=== PATIENT | male | born 1975 | race Caucasian/White ===

== ENCOUNTER 2019-03-01 19:58 | Emergency (ER) | payer MEDICAID, OTHER ==
[~2019-03-01] VITALS: Ht 182.9 cm; Wt 108.0 kg
[2019-03-01 20:16] VITALS: BP_SYST 156
--- NOTE | 2019-03-01 20:30 | NUR ---
Patient to ER bed 02 to gown for evaluation. Side rails up. Report given to Brad VERA.
--- NOTE | 2019-03-01 20:43 | NUR ---
AWAKE, ALERT. PT STATES THAT HE HAS CONSTIPATION FOR THE LAST 3 DAYS. HE ALSO HAS BODY ACHES, CHILLS, AND LOW BACK PAIN.
--- NOTE | 2019-03-01 20:45 | NUR ---
ER at bedside examining patient.
[2019-03-01 21:09] LABS: BASOPHILS % (AUTO) 0.4 % (0.0-2.0); EOSINOPHILS % (AUTO) 0.7 % (0.0-4.0); HEMATOCRIT 40.8 % (36-54); HEMOGLOBIN 13.9 g/dL (14.0-18.0); LYMPHOCYTES % (AUTO) 21.4 % (20.5-51.5); MEAN CORPUSCULAR HEMOGLOBIN 28 pg (27-31); MEAN CORPUSCULAR HGB CONC 34 % (32-36); MEAN CORPUSCULAR VOLUME 82 fL (79.0-98.0); MONOCYTES # (AUTO) 0.5 K/uL (0.0-1.0); MONOCYTES % (AUTO) 10.1 % (1.7-9.3); NEUTROPHILS % (AUTO) 67.4 % (40.0-70.0); PLATELET COUNT (AUTO) 176 K/uL (130-430); RED BLOOD CELL COUNT(AUTO) 4.96 MIL/uL (4.2-6.2); RED CELL DISTRIBUTION WIDTH 14.5 % (9.0-15.0); WHITE BLOOD COUNT (AUTO) 4.5 K/uL (4.8-10.8)
[2019-03-01] MEDS: ONDANSETRON HCL 4 MG/2 ML VIAL IVP ONE (21:11)
[2019-03-01] MEDS: MORPHINE 4 MG/ML INJ. SYRINGE IVP ONE (21:12)
[2019-03-01] MEDS: NACL 0.9% 1,000 ML IV ONE (21:13)
[2019-03-01] MEDS ORDERED: MORPHINE 4 MG/ML INJ. SYRINGE ONE (21:20)
[2019-03-01 21:26] LABS: CALCIUM 8.4 mg/dL (8.4-11.0); CREATININE 1.01 mg/dL (0.55-1.30); POTASSIUM 3.8 mmol/L (3.5-5.1)
[2019-03-01 21:31] LABS: ALBUMIN 3.3 g/dL (3.4-4.8); TOTAL BILIRUBIN 0.2 mg/dL (0.0-1.0)
--- NOTE | 2019-03-01 21:50 | NUR ---
TO CT ABDOMEN AND PELVIS.
[2019-03-01 23:35] VITALS: BP_SYST 156
--- NOTE | 2019-03-01 23:35 | NUR ---
Patient given written and verbal discharge instructions and verbalizes understanding. ER DR ROSENDO ALMAGUER discussed with patient the results and treatment provided. Patient in stable condition. ID arm band removed. IV catheter removed intact and dressing applied, no active bleeding. Rx of BENTYL given. Patient educated on pain management and to follow up with PMD. Pain Scale . Opportunity for questions provided and answered. Medication side effect fact sheet provided.
== END 2019-03-01 23:35 | disposition home or self-care (01) ==
LOC: SED 19:58
DX: E27.8 Other specified disorders of adrenal gland (principal); R03.0 Elevated blood-pressure reading, without diagnosis of hypertension
CPT/HCPCS: 36415; 74176; 80053; 83690; 85025; 96374; 96375; 99284; J2270; J2405; J7030

== ENCOUNTER 2019-03-03 17:53 | Emergency (ER) | payer MEDICAID ==
[~2019-03-03] VITALS: Ht 182.9 cm; Wt 106.6 kg
[2019-03-03 17:53] VITALS: BP_SYST 155
--- NOTE | 2019-03-03 17:55 | NUR ---
BROUGHT BACK TO BED #3 AND TRIAGED. REPORT GIVEN TO PORFIRIO
--- NOTE | 2019-03-03 18:05 | NUR ---
43 year old male patient brought to the er by his mother. pt a/ox4 , ambulatory. pt states abd pain and rectum pain 5/10 at rest, 9/10 with flatus. pt states that abd pain began 03/01 and has increased in severity. pt states he has not filled bentyl prescription from er visit on 03/01. pt denies cp, dizziness, headache, shortness of breath. will continue to monitor.
--- NOTE | 2019-03-03 18:54 | NUR ---
ER at bedside examining patient.
--- NOTE | 2019-03-03 19:00 | NUR ---
Pt endorsed to Ye Mccallum RN
--- NOTE | 2019-03-03 19:02 | NUR ---
Pt states that he came in 2 days ago r/t constipation and now is passing black tarry stools. Pt states it feels like razor blades when he "farts" and resting pain is 5/10. VSS, no nees verbalized at this time. Family member at bedside.
--- NOTE | 2019-03-03 19:05 | NUR ---
X-ray at bedside.
--- NOTE | 2019-03-03 19:30 | NUR ---
Dr. Squires at bedside to assess pt and perform rectal exam. Specimen collected for hemoccult and sent to lab.
[2019-03-03] MEDS: MORPHINE 4 MG/ML INJ. SYRINGE IM ONE (20:20)
[2019-03-03 20:44] VITALS: BP_SYST 142
--- NOTE | 2019-03-03 20:44 | NUR ---
Patient given written and verbal discharge instructions and verbalizes understanding. ER MD discussed with patient the results and treatment provided. Patient in stable condition. ID arm band removed. No Rx given. Patient educated on pain management and to follow up with PMD. Pain Scale 2/10. Opportunity for questions provided and answered. Medication side effect fact sheet provided.
== END 2019-03-03 20:44 | disposition home or self-care (01) ==
LOC: SED 17:53
DX: K64.9 Unspecified hemorrhoids (principal); K62.89 Other specified diseases of anus and rectum; R03.0 Elevated blood-pressure reading, without diagnosis of hypertension; Z90.89 Acquired absence of other organs
CPT/HCPCS: 74021; 82272; 96372; 99284; J2270

== ENCOUNTER 2019-06-07 22:39 | Emergency (ER) | payer MEDICAID ==
[~2019-06-07] VITALS: Ht 182.9 cm; Wt 106.6 kg
[2019-06-07 22:56] VITALS: BP_SYST 159
--- NOTE | 2019-06-07 23:01 | NUR ---
Patient triaged and placed in waiting room. VSS and patient appears in no acute distress at this time. Accompanied by self, awaiting available bed, and MD notified of need for MSE.
--- NOTE | 2019-06-07 23:15 | NUR ---
Pt C/O pain and swelling to the RT leg x 1 month. States symptoms have worsened today, reports minimal relief with Motrin. Pt is ambulatory without assistance but states pain is a 9/10. Pt denies CP, SOB, N/V, or any other symptoms at this time. Will continue to monitor.
--- NOTE | 2019-06-08 01:35 | NUR ---
Pt ambulatory to bed 3 for evaluation
--- NOTE | 2019-06-08 01:43 | NUR ---
ER Dr. Can at bedside examining patient.
--- NOTE | 2019-06-08 02:30 | NUR ---
Pt is resting in bed, no acute distress noted at this time. Will continue to monitor.
[2019-06-08 03:19] LABS: BASOPHILS % (AUTO) 0.7 % (0.0-2.0); EOSINOPHILS # (AUTO) 0.1 K/uL (0.0-0.4); EOSINOPHILS % (AUTO) 2.5 % (0.0-4.0); HEMATOCRIT 39.6 % (36-54); HEMOGLOBIN 13.4 g/dL (14.0-18.0); LYMPHOCYTES % (AUTO) 33.8 % (20.5-51.5); MEAN CORPUSCULAR HEMOGLOBIN 26 pg (27-31); MEAN CORPUSCULAR HGB CONC 34 % (32-36); MEAN CORPUSCULAR VOLUME 78 fL (79.0-98.0); MONOCYTES # (AUTO) 0.6 K/uL (0.0-1.0); MONOCYTES % (AUTO) 10.4 % (1.7-9.3); NEUTROPHILS # (AUTO) 3.1 K/uL (1.8-7.7); NEUTROPHILS % (AUTO) 52.6 % (40.0-70.0); PLATELET COUNT (AUTO) 381 K/uL (130-430); RED BLOOD CELL COUNT(AUTO) 5.07 MIL/uL (4.2-6.2); RED CELL DISTRIBUTION WIDTH 14.2 % (9.0-15.0); WHITE BLOOD COUNT (AUTO) 5.9 K/uL (4.8-10.8)
--- NOTE | 2019-06-08 03:28 | NUR ---
Pt is sleeping in bed, no acute distress noted at this time. Will continue to monitor.
[2019-06-08 03:36] LABS: CALCIUM 8.9 mg/dL (8.4-11.0); CREATININE 0.94 mg/dL (0.55-1.30); POTASSIUM 4.2 mmol/L (3.5-5.1)
[2019-06-08 03:37] LABS: PROTHROMBIN TIME 10.3 SECS (9.5-12.5)
[2019-06-08 03:42] LABS: ALBUMIN 3.6 g/dL (3.4-4.8); TOTAL BILIRUBIN 0.3 mg/dL (0.0-1.0)
[2019-06-08 04:27] VITALS: BP_SYST 159
--- NOTE | 2019-06-08 04:27 | NUR ---
Patient given written and verbal discharge instructions and verbalizes understanding. ER MD discussed with patient the results and treatment provided. Patient in stable condition. ID arm band removed. Patient educated on pain management and to follow up with PMD. Pain Scale 0. Opportunity for questions provided and answered. Medication side effect fact sheet provided.
== END 2019-06-08 04:27 | disposition home or self-care (01) ==
LOC: SED 22:39
DX: R22.41 Localized swelling, mass and lump, right lower limb (principal); M79.89 Other specified soft tissue disorders; Z86.718 Personal history of other venous thrombosis and embolism; Z87.891 Personal history of nicotine dependence
CPT/HCPCS: 36415; 71045; 80053; 85025; 85379; 85610-TC; 85730-TC; 93005; 93971; 99284

== ENCOUNTER 2020-12-27 05:34 | Emergency (ER) | payer MEDICAID ==
[~2020-12-27] VITALS: Ht 182.9 cm; Wt 102.1 kg
[2020-12-27 05:40] VITALS: BP_SYST 150
--- NOTE | 2020-12-27 05:40 | NUR ---
Patient to ER bed 8 to gown for evaluation. Side rails up. Report given to Geovanna VERA.
--- NOTE | 2020-12-27 05:41 | NUR ---
Came in ER ambulatory accompanied by his son from home this 45 year old male, AAOX4, breathing spontaneously at room air, not in distress noted. With chief complaints of lacerated wound in upper and lower lip, mild bleeding noted, he tripped and the new upper denture bite his lips. No known medical/no surgical, no known allergy.
[2020-12-27] MEDS ORDERED: LIDOCAINE VISCOUS 2%, 15 ML UDC MM ONE (06:00)
--- NOTE | 2020-12-27 06:09 | NUR ---
Seen and examined by Dr. Loya, ER Attending
[2020-12-27] MEDS ORDERED: LIDOCAINE VISCOUS 2%, 15 ML UDC ONE (06:11)
--- NOTE | 2020-12-27 06:26 | NUR ---
Medications given as ordered, haelth teaching provided and verbalized understanding
[2020-12-27] MEDS ORDERED: IBUPROFEN 800 MG TABLET PO ONE (06:30)
[2020-12-27] MEDS ORDERED: LIDOCAINE/EPI 1% 1:100000 20 ML VIAL INJ ONE (06:30)
[2020-12-27] MEDS ORDERED: AMOXICILLIN/CLAVULANATE POTASSIUM 875 MG TABLET PO ONE (06:30)
--- NOTE | 2020-12-27 07:10 | NUR ---
Endorsed to day shift RN Glen/ JODY Son in stable condition for continuity of care
[2020-12-27] MEDS ORDERED: IBUP-1969 PO (07:21)
[2020-12-27] MEDS ORDERED: AMOX-426 PO (07:21)
[2020-12-27] MEDS ORDERED: POLYEYEO EACH EYE (07:22)
--- NOTE | 2020-12-27 07:23 | NUR ---
pt resting in [place] with family at bedside. VSS.
[2020-12-27 07:42] VITALS: BP_SYST 150
--- NOTE | 2020-12-27 07:43 | NUR ---
Patient given written and verbal discharge instructions and verbalizes understanding. ER MD discussed with patient the results and treatment provided. Patient in stable condition. ID arm band removed. Rx of amoxicillin, bacitracin, and motrin given. Patient educated on pain management and to follow up with PMD. Pain Scale 0/10. Opportunity for questions provided and answered. Medication side effect fact sheet provided.
== END 2020-12-27 07:43 | disposition home or self-care (01) ==
LOC: SED 05:34
DX: S01.512A Laceration without foreign body of oral cavity, initial encounter (principal); W01.0XXA Fall on same level from slipping, tripping and stumbling without subsequent striking against object, initial encounter; Y93.89 Activity, other specified; Y92.89 Other specified places as the place of occurrence of the external cause; Y99.8 Other external cause status
CPT/HCPCS: 99283; J2001

== ENCOUNTER 2022-01-29 12:17 | Emergency (ER) | payer BC, MEDICAID ==
[~2022-01-29] VITALS: Ht 182.9 cm; Wt 95.3 kg
[~2022-01-29 12:17] MED LIST: AMOX-426 PO; IBUP-1969 PO; POLYEYEO EACH EYE
--- NOTE | 2022-01-29 12:20 | NUR ---
Pt brought by self, A&Ox4, pt presents to ER with abdominal pain ,diarrhea, skin pink and warm, cap refill <3, VSS, respirations even and unlabored, will cont to monitor
[2022-01-29 12:48] VITALS: BP_SYST 131
== END 2022-01-29 15:00 | disposition left against medical advice (07) ==
LOC: SED 12:17
DX: R10.9 Unspecified abdominal pain (principal); R19.7 Diarrhea, unspecified; Z53.21 Procedure and treatment not carried out due to patient leaving prior to being seen by health care provider

== ENCOUNTER 2022-12-08 17:01 | Inpatient (IN) | payer BC, MEDICAID ==
[~2022-12-08] VITALS: Ht 182.9 cm; Wt 102.1 kg
[2022-12-08 17:06] VITALS: BP_SYST 177
--- NOTE | 2022-12-08 17:46 | NUR ---
Patient to ER bed 05 to gown for evaluation. Side rails up.
--- NOTE | 2022-12-08 17:50 | NUR ---
Pt walked in to ER with c/o chest pain 03/21 x1 day, reports h/o long covid and problems with chest tightness and SOB but worse in the last day. EKG done at bedside and given to MD. HTN noted upon arrival, MD aware.
[2022-12-08] MEDS ORDERED: MORPHINE 4 MG INJ. 4 MG/ML VIAL IVP ONE (17:51)
[2022-12-08] MEDS ORDERED: NITROGLYCERIN 1 INCH (GM) OINT. TP ONE (17:51)
[2022-12-08] MEDS ORDERED: LABETALOL HCL 20 MG/4 ML CARTRIDGE IVP ONE (18:00)
--- NOTE | 2022-12-08 18:00 | NUR ---
ER Dr. Kaur at bedside examining patient.
--- NOTE | 2022-12-08 18:10 | NUR ---
# 20 gauge angiocath placed to LAC. Use of asceptic technique. Opsite placed over site. Blood return noted. Blood for lab drawn from site. Flushed with 10 cc of normal saline. No evidence of infiltration noted. Patient tolerated well.
[2022-12-08 18:20] LABS: BASOPHILS % (AUTO) 0.6 % (0.0-2.0); EOSINOPHILS # (AUTO) 0.1 K/uL (0.0-0.4); EOSINOPHILS % (AUTO) 1.7 % (0.0-4.0); HEMATOCRIT 36.2 % (36-54); HEMOGLOBIN 11.7 g/dL (14.0-18.0); LYMPHOCYTES # (AUTO) 2.1 K/uL (1.0-5.5); LYMPHOCYTES % (AUTO) 52.7 % (20.5-51.5); MEAN CORPUSCULAR HEMOGLOBIN 22 pg (27-31); MEAN CORPUSCULAR HGB CONC 32 % (32-36); MEAN CORPUSCULAR VOLUME 67 fL (79.0-98.0); MONOCYTES # (AUTO) 0.5 K/uL (0.0-1.0); MONOCYTES % (AUTO) 11.8 % (1.7-9.3); NEUTROPHILS # (AUTO) 1.3 K/uL (1.8-7.7); NEUTROPHILS % (AUTO) 33.2 % (40.0-70.0); PLATELET COUNT (AUTO) 240 K/uL (130-430); RED BLOOD CELL COUNT(AUTO) 5.41 MIL/uL (4.2-6.2); RED CELL DISTRIBUTION WIDTH 18.7 % (9.0-15.0)
[2022-12-08 18:34] LABS: INR 1.1 (0.80-1.20)
[2022-12-08 18:56] LABS: ALANINE AMINOTRANSFERASE 34 U/L (12-78); ALBUMIN 3.5 g/dL (3.4-4.8); ANION GAP 6 (5-15); ASPARTATE AMINOTRANSFERASE 27 U/L (10-37); CALCIUM 8.9 mg/dL (8.4-11.0); CHLORIDE 105 mmol/L (98-107); CREATININE 1.14 mg/dL (0.55-1.30); GFR AFRICAN AMERICAN 88 mL/min (>90); GLUCOSE 107 mg/dL (70-99); TOTAL BILIRUBIN 0.6 mg/dL (0.0-1.0); UREA NITROGEN, BLOOD 13 mg/dL (8-21)
--- NOTE | 2022-12-08 19:10 | NUR ---
Received report from outgoing nurse JODY Bolaños. Received pt awake and alert lying on gurney, no s/s of distress noted. Family member at bedside.
[2022-12-08] MEDS ORDERED: NITROGLYCERIN 0.4 MG TAB.SUBL SL ONE (19:30)
[2022-12-08] MEDS ORDERED: FUROSEMIDE 40 MG/4 ML VIAL IVP ONE (19:30)
[2022-12-08] MEDS ORDERED: BICT1TAB PO (20:19)
--- NOTE | 2022-12-08 20:19 | NUR ---
Medication reconciliation completed with information provided by PATIENT. Any prior medication reconciliation on file was reviewed and corrected.
[2022-12-08] MEDS ORDERED: ASPIRIN 325 MG TABLET PO ONE (20:45)
--- NOTE | 2022-12-08 21:08 | NUR ---
Admit bed requested Patient will be admitted to care of [[facility]]. Admitted to [Tele] unit. Diagnosis [Chest pain] Inpatient (Yes or No) [Yes] Observation (Yes or No) [No] Orientation concerns or request close to nursing station (Yes or No) [No] Covid Status [] On vent or bipap [n/a] Isolation requirements [n/a] Needs a sitter [n/a] From Home (Yes or if No enter name of facility) [yes] Requires Dialysis (Yes or No) [n/a] Med Rec Completed (Yes of No) []
[2022-12-08] MEDS ORDERED: HYDROcodone/ACETAMIN 10-325 MG TAB PO PRN ×2 (22:45)
[2022-12-08] MEDS ORDERED: ACETAMINOPHEN 325 MG TABLET PO PRN (22:45)
[2022-12-08] MEDS ORDERED: IPRATROPIUM BROM 0.5 MG/2.5 ML VIAL.NEB (ATROVENT) INH PRN (22:45)
[2022-12-08] MEDS ORDERED: LORazepam 2 MG/ML VIAL IVP PRN ×2 (22:45)
[2022-12-08] MEDS ORDERED: HYDROcodone/ACETAMIN 5-325 MG TAB (NORCO/ VICODIN) PO PRN ×2 (22:45)
[2022-12-08] MEDS ORDERED: ALBUTEROL SULFATE 0.083% 2.5 MG/3 ML VIAL.NEB INH PRN (22:45)
[2022-12-08] MEDS ORDERED: NALOXONE HCL 0.4 MG/ML AMP (NARCAN) IVP PRN ×4 (22:45)
[2022-12-08] MEDS ORDERED: ONDANSETRON HCL 4 MG/2 ML VIAL IVP PRN ×2 (22:45)
--- NOTE | 2022-12-08 23:48 | NUR ---
PT RESTING WITH EYES CLOSED, NO S/S OF DISCOMFORT NOTED.
[2022-12-09 03:15] VITALS: BP_SYST 146
--- NOTE | 2022-12-09 04:32 | NUR ---
PT RESTING WITH EYES CLOSED, AUDIBLE SNORING NOTED. NO S/S OF DISTRESS NOTED.
[2022-12-09 05:07] LABS: BASOPHILS % (AUTO) 0.4 % (0.0-2.0); EOSINOPHILS # (AUTO) 0.1 K/uL (0.0-0.4); EOSINOPHILS % (AUTO) 1.8 % (0.0-4.0); LYMPHOCYTES # (AUTO) 2.3 K/uL (1.0-5.5); LYMPHOCYTES % (AUTO) 43.7 % (20.5-51.5); MEAN CORPUSCULAR HEMOGLOBIN 22 pg (27-31); MEAN CORPUSCULAR HGB CONC 32 % (32-36); MEAN CORPUSCULAR VOLUME 67 fL (79.0-98.0); MONOCYTES # (AUTO) 0.6 K/uL (0.0-1.0); NEUTROPHILS # (AUTO) 2.2 K/uL (1.8-7.7); NEUTROPHILS % (AUTO) 42.1 % (40.0-70.0); PLATELET COUNT (AUTO) 260 K/uL (130-430); RED BLOOD CELL COUNT(AUTO) 5.52 MIL/uL (4.2-6.2); RED CELL DISTRIBUTION WIDTH 18.7 % (9.0-15.0); WHITE BLOOD COUNT (AUTO) 5.2 K/uL (4.8-10.8)
[2022-12-09 05:34] LABS: ALBUMIN 3.5 g/dL (3.4-4.8); CALCIUM 8.3 mg/dL (8.4-11.0); CREATININE 1.26 mg/dL (0.55-1.30); PHOSPHORUS 3.6 mg/dL (2.7-4.5); TOTAL BILIRUBIN 0.8 mg/dL (0.0-1.0)
[2022-12-09] MEDS ORDERED: NORMAL SALINE 5 ML DISP.SYRIN IVF SCH (06:00)
--- NOTE | 2022-12-09 07:26 | NUR ---
Note elmer in EDM - 12/09/22 at 0729 by SADIEURAL Pt awake and alert sitting on edge of bed, no s/s of discomfort noted. Endorsed pt and care to PRICE Parker and PRICE Still.
--- NOTE | 2022-12-09 07:29 | NUR ---
Pt awake and alert sitting on edge of bed, no s/s of discomfort noted. Endorsed pt and care to JODY Lim.
[2022-12-09] MEDS: NORMAL SALINE 5 ML DISP.SYRIN IVF SCH ×3 (07:30→23:15)
--- NOTE | 2022-12-09 07:31 | NUR ---
FOOD TRAY ORDERED FOR PT.
--- NOTE | 2022-12-09 07:36 | NUR ---
ASSUMED CARE FROM IVIS. PT RESTING IN BED WITH BEDSIDE, VSS. PT DENIES CHEST PAIN AT THIS TIME. BP IS 132/89
--- NOTE | 2022-12-09 07:47 | NUR ---
ULTRASOUND IN ROOM
--- NOTE | 2022-12-09 08:14 | NUR ---
PT TO RAD FOR C/T OF THE HEAD
--- NOTE | 2022-12-09 08:38 | NUR ---
PT EATING BREAKFAST BEDSIDE.
[2022-12-09] MEDS: ACETAMINOPHEN 325 MG TABLET PO PRN (09:00)
[2022-12-09 09:17] VITALS: BP_SYST 152
--- NOTE | 2022-12-09 09:17 | NUR ---
Admission note: Patient was transferred from ER via gurney. Report received from Marito VERA. Patient is awake alert x4. Oriented room and call light. Side rails x2 up. Call light in reach. Denied any pain or discomfort at this time. Assessment is done and vital checked. All admission data obtained and person belongings checked.
--- NOTE | 2022-12-09 09:26 | NUR ---
Patient will be admitted to care of [facility]. Admitted to TELE unit. Will go to room 102B. Belongings list completed. Complete and up to date summary report printed. SBAR report given TO RENETTA VERA at bedside with opportunity for questions.
--- NOTE | 2022-12-09 10:11 | NUR ---
CONSULTATION PAGED REASON FOR CONSULTATION: [facility] WAS CONSULT CALLED? Y PERSON WHO WAS NOTIFIED: TEXT MESSAGED ANUJ ALDANA CONSULTING PHYSICIAN: JACKSON ALDANA REPORTING CONSULTANT SPECIALTY: CARDIO REPORTING CONSULTANT PHONE NUMBER: [phone] REQUESTING PHYSICIAN: CHECO ALDANA
--- NOTE | 2022-12-09 10:11 | NUR ---
CONSULTATION PAGED REASON FOR CONSULTATION: [facility] WAS CONSULT CALLED? Y PERSON WHO WAS NOTIFIED: TEXT MESSAGED MADELYN ALATORRE CONSULTING PHYSICIAN: MADELYN ALATORRE RELAY TESTER SPECIALTY: NEURO RELAY TESTER PHONE NUMBER: [phone] REQUESTING PHYSICIAN: CHECO ALDANA
[2022-12-09 12:43] VITALS: BP_SYST 134
--- NOTE | 2022-12-09 15:37 | NUR ---
dr khushboo pacheco here to see patient. mdcleared patient for discharge. Neuro does not need to see per dr Yamel Pacheco
--- NOTE | 2022-12-09 15:49 | NUR ---
PATIENT WENT TO SEE PATIENT AND INFORMED HIM THAT HE WILL BE DISCHARGE. PATIENT STATED THAT HE WILL NOT LEAVE UNTIL HE GETS A STRESS TEST. I INFORMED HIM THAT DR WHEELER DID NOT ORDER A STRESS AND THAT IT CAN BE DONE OUT PATIENT. PATIENT STATED THAT IT WILL BE MONTHS BEFORE HE CAN GET THE STRESS TEST SCHEDULE. CALLED DR WHEELER. WAITING FOR CALL BACK
[2022-12-09 16:26] VITALS: BP_SYST 143
--- NOTE | 2022-12-09 17:04 | NUR ---
Note: new order received from Dr. Abe Pacheco. No pain or discomfort at this time. Cancelled the discharge home today and will do a regular stress test tomorrow. Patient and girlfriend Ghada made aware. Consent is signed and will keep nothing by mouth after midnight.
--- NOTE | 2022-12-09 19:41 | NUR ---
Closing note: Dr. Abe Pacheco called and want to help to enter order of Cardiolite stress test. Order is noted and entered. Reported to Barbara and endorse to continue patient care. Patient is awake alert x4 and no pain or discomfort at this time.
[2022-12-09 20:00] VITALS: BP_SYST 147
--- NOTE | 2022-12-09 20:00 | NUR ---
ASSUMED CARE OF PATIENT AT THIS TIME. A/O x 4. VSS. RESPIRATIONS EVEN AND UNLABORED. NO SOB NOTED. A-FIB ON TELE MONITOR. HL INTACT AND PATENT WITH NO REDNESS OR IRRITATION NOTED. DENIES PAIN AT THIS TIME. NO ACUTE DISTRESS NOTED. WILL CONTINUE TO MONITOR FOR SAFETY. Natalie MURPHY RN. Addendum: 12/09/22 at 2250 by [facility] JODY Lynch RN PATIENT IS SR ON TELE MONITOR. Natalie MURPHY RN.
[2022-12-10 00:10] VITALS: BP_SYST 151
--- NOTE | 2022-12-10 00:30 | NUR ---
SLEEPING COMFORTABLY WITH NO ACUTE DISTRESS NOTED. Natalie MURPHY RN.
[2022-12-10 06:15] LABS: BASOPHILS % (AUTO) 0.5 % (0.0-2.0); EOSINOPHILS # (AUTO) 0.1 K/uL (0.0-0.4); EOSINOPHILS % (AUTO) 2.3 % (0.0-4.0); HEMATOCRIT 39.1 % (36-54); HEMOGLOBIN 12.5 g/dL (14.0-18.0); LYMPHOCYTES % (AUTO) 51.4 % (20.5-51.5); MEAN CORPUSCULAR HEMOGLOBIN 22 pg (27-31); MEAN CORPUSCULAR HGB CONC 32 % (32-36); MEAN CORPUSCULAR VOLUME 67 fL (79.0-98.0); MONOCYTES # (AUTO) 0.4 K/uL (0.0-1.0); MONOCYTES % (AUTO) 9.8 % (1.7-9.3); NEUTROPHILS # (AUTO) 1.4 K/uL (1.8-7.7); PLATELET COUNT (AUTO) 238 K/uL (130-430); RED BLOOD CELL COUNT(AUTO) 5.83 MIL/uL (4.2-6.2); RED CELL DISTRIBUTION WIDTH 18.1 % (9.0-15.0); WHITE BLOOD COUNT (AUTO) 3.9 K/uL (4.8-10.8)
[2022-12-10] MEDS: NORMAL SALINE 5 ML DISP.SYRIN IVF SCH ×3 (06:29→21:51)
--- NOTE | 2022-12-10 06:36 | NUR ---
REMAINS IN STABLE CONDITION. PATIENT SLEPT WELL THROUGHOUT THE NIGHT WITH NO ACUTE DISTRESS NOTED. Natalie MURPHY RN.
[2022-12-10 07:13] LABS: CALCIUM 8.6 mg/dL (8.4-11.0); CREATININE 1.11 mg/dL (0.55-1.30)
--- NOTE | 2022-12-10 07:30 | NUR ---
Initial Note: Report received from Barbara. patient returned from the first part of the stress test. Still keep nothing by mouth for the second part of the stress test. patient made aware. Assessment is done and vital checked. No pain or discomfort at this time. Will continue patient care. Patient is resting in bed. Bed in the lowest position and side rails x2 up. Call light in reach.
[2022-12-10 08:00] VITALS: BP_SYST 142
[2022-12-10] MEDS ORDERED: REGADENOSON 0.4 MG/5 ML SYRINGE IVP ONE (09:30)
--- NOTE | 2022-12-10 09:30 | NUR ---
Note: patient was transferred to stress test part 2. No pain or discomfort at this time.
--- NOTE | 2022-12-10 10:01 | NUR ---
Note: patient returned to floor. Resume diet. No pain or discomfort at this time.
--- NOTE | 2022-12-10 10:29 | NUR ---
Note: Dr. Abe Pacheco is here to see patient and family. Plan of care discussed. Patient complained with chest pressure and new orders received.
[2022-12-10] MEDS ORDERED: ASPIRIN 81 MG TAB.CHEW PO ONE (10:30)
[2022-12-10] MEDS ORDERED: NITROGLYCERIN 0.4 MG TAB.SUBL SL PRN (10:30)
[2022-12-10] MEDS ORDERED: METOPROLOL TARTRATE 50 MG TABLET PO ONE (10:30)
[2022-12-10] MEDS ORDERED: *LOVENOX 1MG/KG Q12H/PHARMACY XX ONE (10:30)
[2022-12-10] MEDS ORDERED: lisinopriL 20 MG TABLET PO ONE (10:30)
--- NOTE | 2022-12-10 10:56 | NUR ---
RADIOLOGICAL HEALTH SPECIALIST DR Abe WHEELER ASKED ME TO FAX THE FACE SHEET TO [facility] ATTN: BLACK, FAX #[phone]
--- NOTE | 2022-12-10 11:03 | NUR ---
Note: medications including Nitroglycerin is given. Patient stated chest pain is resolved and no need for the second and third doses. Complained headache and will give tylenol.
--- NOTE | 2022-12-10 11:09 | NUR ---
Note: called and checked with pharmacist Henry. Layton to give the Lovenox injection.
--- NOTE | 2022-12-10 11:10 | NUR ---
[facility]/HCP CM Janee Banks was called RE; ARRANGE TRANSFER TO [facility] FOR HEART CATH THAT DR WHEELER SCHEDULED FOR 12N TOMORROW 12/11/22. LEFT A VM ON HER CP.
[2022-12-10] MEDS: ACETAMINOPHEN 325 MG TABLET PO PRN (11:12)
[2022-12-10] MEDS: ENOXAPARIN SODIUM 100 MG/ML SYRINGE SUBCUT SCH ×2 (11:12→22:42)
[2022-12-10 11:37] VITALS: BP_SYST 152
--- NOTE | 2022-12-10 12:26 | NUR ---
Note: patient is awake alert x4. Stated headache and chest pain is getting better. Self feeding for lunch. Will continue to monitor.
[2022-12-10 15:48] VITALS: BP_SYST 109
--- NOTE | 2022-12-10 16:00 | NUR ---
[facility] CM [facility] PROVIDED THE AUTHORIZATIONS FOR CARDIAC CATH [id number] AND AMBULANCE TRANSPO WITH [facility] ([facility]) AUTH [id number]. CART DRIVER TIME WILL BE SET FOR 10AM, 12/11/[address] [facility] SCHED FOR [address] KARLOS WHEELER. (CONFIRMED TIME SLOT WITH [facility] [place])
--- NOTE | 2022-12-10 16:30 | NUR ---
Note: patient is awake alert x4. Resting in bed. No pain or discomfort at this time. Will continue to monitor.
--- NOTE | 2022-12-10 19:21 | NUR ---
Closing note: Reported to Barbara. patient is resting in bed. No pain or discomfort at this time. Endorse to continue patient care.
[2022-12-10 20:00] VITALS: BP_SYST 148
--- NOTE | 2022-12-10 20:00 | NUR ---
ASSUMED CARE OF PATIENT AT THIS TIME. PATIENT A/O X 4. RESPIRATIONS EVEN AND UNLABORED. O2 SAT 97% ON ROOM AIR. PATIENT COMPLAINING OF FEELING SOB. O2 2LNC PLACED FOR COMFORT. PATIENT COMPLAINING OF A HEADACHE AT 01/18. WILL MEDICATED FOR HEADACHE WITH NORCO 1 TB PO ORDERED. SR ON TELE MONITOR. DENIES CHEST PAIN AT THIS TIME. NO ACUTE DISTRESS NOTED. WILL CONTINUE TO MONITOR FOR SAFETY. Natalie MURPHY RN.
[2022-12-10] MEDS: METOPROLOL TARTRATE 50 MG TABLET PO SCH (20:42)
[2022-12-10] MEDS ORDERED: ATORVASTATIN 20 MG TABLET PO SCH (21:00)
[2022-12-11 00:38] VITALS: BP_SYST 144
--- NOTE | 2022-12-11 01:00 | NUR ---
SLEEPING COMFORTABLY WITH NO ACUTE DISTRESS NOTED. Natalie MURPHY RN.
[2022-12-11 05:28] LABS: BASOPHILS % (AUTO) 0.6 % (0.0-2.0); EOSINOPHILS # (AUTO) 0.1 K/uL (0.0-0.4); EOSINOPHILS % (AUTO) 1.9 % (0.0-4.0); HEMATOCRIT 36.8 % (36-54); HEMOGLOBIN 11.7 g/dL (14.0-18.0); LYMPHOCYTES # (AUTO) 2.3 K/uL (1.0-5.5); LYMPHOCYTES % (AUTO) 52.5 % (20.5-51.5); MEAN CORPUSCULAR HEMOGLOBIN 22 pg (27-31); MEAN CORPUSCULAR HGB CONC 32 % (32-36); MEAN CORPUSCULAR VOLUME 68 fL (79.0-98.0); MONOCYTES # (AUTO) 0.5 K/uL (0.0-1.0); MONOCYTES % (AUTO) 11.4 % (1.7-9.3); NEUTROPHILS # (AUTO) 1.5 K/uL (1.8-7.7); NEUTROPHILS % (AUTO) 33.6 % (40.0-70.0); PLATELET COUNT (AUTO) 232 K/uL (130-430); RED CELL DISTRIBUTION WIDTH 18.7 % (9.0-15.0); WHITE BLOOD COUNT (AUTO) 4.4 K/uL (4.8-10.8)
[2022-12-11] MEDS: NORMAL SALINE 5 ML DISP.SYRIN IVF SCH (05:41)
[2022-12-11 05:57] LABS: ALBUMIN 3.2 g/dL (3.4-4.8); CALCIUM 8.3 mg/dL (8.4-11.0); CREATININE 1.18 mg/dL (0.55-1.30); TOTAL BILIRUBIN 0.4 mg/dL (0.0-1.0)
--- NOTE | 2022-12-11 06:13 | NUR ---
REMAINS IN STABLE CONDITION. SLEPT WELL THROUGHOUT THE NIGHT. Natalie MURPHY RN.
[2022-12-11] MEDS: METOPROLOL TARTRATE 50 MG TABLET PO SCH (08:53)
[2022-12-11] MEDS ORDERED: lisinopriL 20 MG TABLET PO SCH (09:00)
[2022-12-11] MEDS ORDERED: ASPIRIN 81 MG TAB.CHEW PO SCH (09:00)
--- NOTE | 2022-12-11 09:42 | NUR ---
FOLLOWED UP FOR A BED AT [facility]. SPOKE TO NURSING UNDERTAKER HELPER [place]. PT IS GOING TO RM 255 B, TEL NUMBER TO GIVE REPORT IS [phone]. NOTIFIED RNSUSY OF THE PT 'S PROGRAM PROJECT ANALYST TIME BY [facility] ([facility]) AT 10AM TODAY. SANDOR, BED CONTROL ALSO NOTIFIED OUR ELAINE THAT PT HAS A COPAY OF $3,300. PT AGREED TO SHOULDER THE CO PAY. [facility] BED CONTROL WAS NOTIFIED THAT PT AGREED TO PAY THE COPAY. CONFIRMED WITH [facility] THAT AMBULANCE IS ON THE WAY. SPOKE TO RASHARD
--- NOTE | 2022-12-11 10:00 | NUR ---
patient transferred to [facility] room 255b, transported by [facility] ambulance, report given to receiving nurse chriss dobbs, iv in rfa left in place per receiving nurse request, no other needs at this time
[2022-12-11 10:01] VITALS: BP_SYST 150
== END 2022-12-11 10:15 | disposition short-term general hospital (02) | DRG 291 ==
LOC: SED 17:01 → STU 21:05
PROVIDERS: ADMIT Preventive Medicine Preventive Medicine/Occupational Environmental Medicine; ATTEND Preventive Medicine Preventive Medicine/Occupational Environmental Medicine
DX: I11.0 Hypertensive heart disease with heart failure (principal); I50.21 Acute systolic (congestive) heart failure; R65.10 Systemic inflammatory response syndrome (SIRS) of non-infectious origin without acute organ dysfunction; G44.1 Vascular headache, not elsewhere classified; I25.110 Atherosclerotic heart disease of native coronary artery with unstable angina pectoris; E88.09 Other disorders of plasma-protein metabolism, not elsewhere classified; D64.9 Anemia, unspecified; I25.5 Ischemic cardiomyopathy; G47.30 Sleep apnea, unspecified; T46.3X5A Adverse effect of coronary vasodilators, initial encounter; E78.5 Hyperlipidemia, unspecified; E83.52 Hypercalcemia; R73.9 Hyperglycemia, unspecified; Z79.01 Long term (current) use of anticoagulants; Z87.891 Personal history of nicotine dependence; Z79.1 Long term (current) use of non-steroidal anti-inflammatories (NSAID); Z79.899 Other long term (current) drug therapy; Y92.89 Other specified places as the place of occurrence of the external cause
CPT/HCPCS: 36415; 70450-TC; 71045; 76376; 80048; 80053; 83735; 83880; 84100; 84484; 85025; 85379; 85610-TC; 85730-TC; 93005; 93017; 93306; 93880; 94760; 96374; 96375; 99285; A9500; G0378; J1650; J1940; J2060; J2270; J2785